=== PATIENT | female | born 1940 | race Caucasian/White ===

== ENCOUNTER 2021-04-20 19:19 | Inpatient (IN) | payer OTHER ==
[~2021-04-20] VITALS: Ht 162.6 cm; Wt 99.8 kg
[2021-04-20 20:34] LABS: CALCIUM, SERUM 9.2 mg/dL (8.5-10.1); CREATININE 1.1 mg/dL (0.6-1.3); POTASSIUM 3.6 mmol/L (3.5-5.1)
[2021-04-20 20:38] LABS: BASOPHILS % (AUTO) 0.5 % (0.0-2.0); EOSINOPHILS % (AUTO) 0.8 % (0.0-6.0); HEMATOCRIT 37 % (33-45); HEMOGLOBIN 12.4 g/dL (11.5-14.8); LYMPHOCYTES # (AUTO) 2.2 K/uL (0.8-4.8); LYMPHOCYTES % (AUTO) 25.7 % (20.0-44.0); MEAN CORPUSCULAR HGB CONC 34 g/dl (31.0-36.0); MEAN CORPUSCULAR VOLUME 91 fL (82-100); MONOCYTES # (AUTO) 0.6 K/uL (0.1-1.30); MONOCYTES % (AUTO) 7.2 % (2.0-12.0); NEUTROPHILS # (AUTO) 5.6 K/uL (1.8-8.9); NEUTROPHILS % (AUTO) 65.8 % (43.0-81.0); PLATELET COUNT (AUTO) 337 K/uL (150-450); RED BLOOD CELL COUNT(AUTO) 4.08 MIL/uL (4.0-5.2); WHITE BLOOD COUNT (AUTO) 8.4 K/uL (4.3-11.0)
[2021-04-20] MEDS ORDERED: ONDANSETRON HCL/PF 4 MG/2 ML VIAL ONE (20:43)
[2021-04-20] MEDS ORDERED: MORPHINE SULFATE INJ 4 MG/ML DISP.SYRIN ONE (20:44)
[2021-04-20] MEDS ORDERED: ONDANSETRON HCL/PF 4 MG/2 ML VIAL IV ONE (21:00)
[2021-04-20] MEDS ORDERED: MORPHINE SULFATE INJ 2 MG/ML DISP.SYRIN IV ONE (21:00)
[2021-04-20] MEDS ORDERED: ONDANSETRON HCL/PF 4 MG/2 ML VIAL IVP PRN (21:30)
[2021-04-20] MEDS ORDERED: MORPHINE SULFATE INJ 2 MG/ML DISP.SYRIN IV PRN (21:30)
[2021-04-20] MEDS ORDERED: ACETAMINOPHEN 325 MG TABLET PO PRN (21:30)
[2021-04-20] MEDS ORDERED: Z GUARD REMEDY 4 OZ OINT TP PRN (21:30)
[2021-04-20] MEDS ORDERED: MAGNESIUM HYDROXIDE 30 ML UDC PO PRN (21:30)
[2021-04-20] MEDS ORDERED: MAG HYDROX/AL HYDROX/SIMETH 30 ML UDC PO PRN (21:30)
[2021-04-20] MEDS ORDERED: HYDROMORPHONE 1 MG/1 ML DISP.SYRIN ONE (22:56)
[2021-04-20] MEDS ORDERED: ONDANSETRON HCL/PF - ER 4 MG/2 ML VIAL IV ONE (23:00)
[2021-04-20] MEDS ORDERED: HYDROMORPHONE 1 MG/1 ML DISP.SYRIN IV ONE (23:00)
[2021-04-21] MEDS ORDERED: MORPHINE SULFATE INJ 2 MG/ML DISP.SYRIN ONE (03:44)
[2021-04-21 04:30] VITALS: BP 147/75
[2021-04-21] MEDS: HYDROMORPHONE 1 MG/1 ML DISP.SYRIN IV PRN ×4 (05:51→18:51)
[2021-04-21] MEDS: IV NS 0.9% 1,000 ML IV PRN ×2 (07:33→19:06)
[2021-04-21] MEDS ORDERED: LOSA25TA27 PO (08:02)
[2021-04-21 08:04] LABS: BASOPHILS # (AUTO) 0.1 K/uL (0.0-0.2); BASOPHILS % (AUTO) 0.7 % (0.0-2.0); EOSINOPHILS % (AUTO) 1.5 % (0.0-6.0); HEMATOCRIT 37 % (33-45); HEMOGLOBIN 12.3 g/dL (11.5-14.8); LYMPHOCYTES # (AUTO) 1.1 K/uL (0.8-4.8); LYMPHOCYTES % (AUTO) 12.7 % (20.0-44.0); MEAN CORPUSCULAR HGB CONC 33 g/dl (31.0-36.0); MEAN CORPUSCULAR VOLUME 91 fL (82-100); MONOCYTES # (AUTO) 0.8 K/uL (0.1-1.30); NEUTROPHILS # (AUTO) 6.5 K/uL (1.8-8.9); NEUTROPHILS % (AUTO) 76.1 % (43.0-81.0); PLATELET COUNT (AUTO) 301 K/uL (150-450); RED BLOOD CELL COUNT(AUTO) 4.13 MIL/uL (4.0-5.2); WHITE BLOOD COUNT (AUTO) 8.6 K/uL (4.3-11.0)
[2021-04-21 08:31] LABS: BILIRUBIN,TOTAL 0.7 mg/dL (0.2-1.0); CALCIUM, SERUM 8.8 mg/dL (8.5-10.1); CREATININE 1.1 mg/dL (0.6-1.3); MAGNESIUM 2.1 mg/dL (1.8-2.4); PHOSPHORUS 4.1 mg/dL (2.5-4.9); POTASSIUM 3.6 mmol/L (3.5-5.1); TOTAL PROTEIN, SERUM 6.9 g/dL (6.4-8.2)
[2021-04-21] MEDS: PANTOPRAZOLE 40 MG VIAL IV SCH ×2 (08:34→08:38)
[2021-04-21 08:37] VITALS: BP 141/76
[2021-04-21] MEDS ORDERED: BIOT10004 PO (12:59)
[2021-04-21] MEDS ORDERED: CALC500T52 PO (12:59)
[2021-04-21] MEDS ORDERED: CHOL100043 PO (12:59)
[2021-04-21] MEDS ORDERED: TROS20TA3 PO (12:59)
[2021-04-21] MEDS ORDERED: MULT-24 PO (12:59)
[2021-04-21] MEDS ORDERED: ATOR10TA PO (12:59)
[2021-04-21] MEDS ORDERED: LORA-259 PO (12:59)
[2021-04-21 16:07] VITALS: BP 137/74
[2021-04-21 20:00] VITALS: BP 121/90
[2021-04-22] VITALS (10 sets, daily range): BP systolic 115–149; BP diastolic 56–83
[2021-04-22] MEDS: HYDROMORPHONE 1 MG/1 ML DISP.SYRIN IV PRN ×4 (02:58→21:59)
[2021-04-22] MEDS: LOSARTAN POTASSIUM 50 MG TABLET PO SCH (08:13)
[2021-04-22] MEDS: PANTOPRAZOLE 40 MG VIAL IV SCH (08:13)
[2021-04-22] MEDS ORDERED: POLYMYXIN B SULFATE 500,000 UNITS ONE ×2 (09:00→11:27)
[2021-04-22] MEDS ORDERED: BUPIVACAINE 0.25% 75 MG/30 ML VIAL ONE (09:01)
[2021-04-22] MEDS ORDERED: ANESTHESIA TRAY IN PYXIS 1 EA TRAY MC ONE (09:01)
[2021-04-22] MEDS ORDERED: VANCOMYCIN 1 GM VIAL ONE (09:01)
[2021-04-22] MEDS ORDERED: FENTANYL PF 100MCG/2ML AMPUL ONE ×3 (09:47→12:51)
[2021-04-22] MEDS ORDERED: PROPOFOL 20 ML IV ONE (09:47)
[2021-04-22] MEDS: DOCUSATE SODIUM 100 MG CAPSULE PO SCH ×2 (13:00→16:52)
[2021-04-22 13:36] LABS: HEMOGLOBIN 11.9 g/dL (11.5-14.8)
[2021-04-22] MEDS: ANCEF 1 GM/50 ML D5W IV SCH ×2 (17:21)
[2021-04-22] MEDS: ENOXAPARIN SODIUM 40 MG/0.4 ML DISP.SYRIN SQ SCH (22:03)
[2021-04-23] MEDS: IV NS 0.9% 1,000 ML IV PRN (00:48)
[2021-04-23] MEDS: ANCEF 1 GM/50 ML D5W IV SCH ×2 (01:02)
[2021-04-23] MEDS: HYDROCODONE/APAP 10/325MG TABLET PO PRN ×2 (01:22→20:43)
[2021-04-23 03:44] VITALS: BP 120/87
[2021-04-23 07:54] LABS: HEMOGLOBIN 10.5 g/dL (11.5-14.8)
[2021-04-23] MEDS: DOCUSATE SODIUM 100 MG CAPSULE PO SCH ×3 (09:58→16:07)
[2021-04-23] MEDS: LOSARTAN POTASSIUM 50 MG TABLET PO SCH (09:58)
[2021-04-23] MEDS: PANTOPRAZOLE 40 MG TABLET.DR PO SCH (10:02)
[2021-04-23] MEDS: HYDROMORPHONE 1 MG/1 ML DISP.SYRIN IV PRN (10:03)
[2021-04-23] MEDS ORDERED: LORAZEPAM 1 MG TABLET PO PRN (13:30)
[2021-04-23 16:14] VITALS: BP 129/76
[2021-04-23 20:00] VITALS: BP 149/65
[2021-04-23] MEDS: ENOXAPARIN SODIUM 40 MG/0.4 ML DISP.SYRIN SQ SCH (22:00)
[2021-04-24] MEDS: HYDROMORPHONE 1 MG/1 ML DISP.SYRIN IV PRN (07:01)
[2021-04-24 07:10] LABS: BASOPHILS % (AUTO) 0.7 % (0.0-2.0); EOSINOPHILS % (AUTO) 4.1 % (0.0-6.0); HEMATOCRIT 29 % (33-45); HEMOGLOBIN 9.9 g/dL (11.5-14.8); LYMPHOCYTES % (AUTO) 15.3 % (20.0-44.0); MEAN CORPUSCULAR HGB CONC 34 g/dl (31.0-36.0); MEAN CORPUSCULAR VOLUME 91 fL (82-100); MONOCYTES # (AUTO) 0.7 K/uL (0.1-1.30); NEUTROPHILS # (AUTO) 4.5 K/uL (1.8-8.9); NEUTROPHILS % (AUTO) 68.9 % (43.0-81.0); PLATELET COUNT (AUTO) 283 K/uL (150-450); RED BLOOD CELL COUNT(AUTO) 3.22 MIL/uL (4.0-5.2); WHITE BLOOD COUNT (AUTO) 6.5 K/uL (4.3-11.0)
[2021-04-24 07:51] LABS: CALCIUM, SERUM 8.6 mg/dL (8.5-10.1); CREATININE 0.8 mg/dL (0.6-1.3); MAGNESIUM 2.3 mg/dL (1.8-2.4); PHOSPHORUS 2.4 mg/dL (2.5-4.9)
[2021-04-24 08:16] VITALS: BP 151/57
[2021-04-24] MEDS: CHOLECALCIFEROL 1,000 UNIT TABLET (VIT D3) PO SCH (09:13)
[2021-04-24] MEDS: DOCUSATE SODIUM 100 MG CAPSULE PO SCH ×3 (09:13→16:21)
[2021-04-24] MEDS: LOSARTAN POTASSIUM 50 MG TABLET PO SCH (09:13)
[2021-04-24] MEDS: MULTIVITAMINS,THERAGRAN 1 UDTAB TABLET PO SCH (09:13)
[2021-04-24] MEDS: PANTOPRAZOLE 40 MG TABLET.DR PO SCH (09:15)
[2021-04-24] MEDS ORDERED: K PHOS NEUTRAL 250 MG TABLET PO ONE (11:30)
[2021-04-24] MEDS: HYDROCODONE/APAP 10/325MG TABLET PO PRN ×2 (12:40→20:15)
[2021-04-24 16:39] VITALS: BP 137/58
[2021-04-24 20:00] VITALS: BP 132/60
[2021-04-24] MEDS: ENOXAPARIN SODIUM 40 MG/0.4 ML DISP.SYRIN SQ SCH (21:36)
[2021-04-25] VITALS: BP 147/87
[2021-04-25 08:00] VITALS: BP 151/61
[2021-04-25] MEDS: ENOXAPARIN SODIUM 40 MG/0.4 ML DISP.SYRIN SQ SCH ×2 (08:50→21:41)
[2021-04-25] MEDS: LOSARTAN POTASSIUM 50 MG TABLET PO SCH (08:51)
[2021-04-25] MEDS: CHOLECALCIFEROL 1,000 UNIT TABLET (VIT D3) PO SCH (08:51)
[2021-04-25] MEDS: HYDROCODONE/APAP 10/325MG TABLET PO PRN ×2 (08:51→19:04)
[2021-04-25] MEDS: DOCUSATE SODIUM 100 MG CAPSULE PO SCH ×3 (08:51→16:03)
[2021-04-25] MEDS: MULTIVITAMINS,THERAGRAN 1 UDTAB TABLET PO SCH (08:51)
[2021-04-25] MEDS: PANTOPRAZOLE 40 MG TABLET.DR PO SCH (08:51)
[2021-04-25 11:08] LABS: IRON, SERUM 20 ug/dl (50-175); TOTAL IRON BINDING CAPACITY 219 ug/dl (250-450)
[2021-04-25] MEDS: ASCORBIC ACID 500 MG TABLET PO SCH (13:29)
[2021-04-25 15:48] LABS: FERRITIN 141 ng/mL (8-388)
[2021-04-25 16:00] VITALS: BP 156/76
[2021-04-25] MEDS ORDERED: FERROUS SULFATE (325 MG) 325 MG/TAB TABLET PO SCH (17:00)
[2021-04-25 20:00] VITALS: BP 130/76
[2021-04-25 20:53] VITALS: BP 130/70
[2021-04-26] MEDS: HYDROCODONE/APAP 10/325MG TABLET PO PRN ×3 (06:53→19:38)
[2021-04-26 07:21] LABS: BASOPHILS % (AUTO) 0.8 % (0.0-2.0); EOSINOPHILS % (AUTO) 4.5 % (0.0-6.0); HEMATOCRIT 29 % (33-45); HEMOGLOBIN 9.8 g/dL (11.5-14.8); LYMPHOCYTES # (AUTO) 1.2 K/uL (0.8-4.8); LYMPHOCYTES % (AUTO) 20.4 % (20.0-44.0); MEAN CORPUSCULAR HGB CONC 33 g/dl (31.0-36.0); MEAN CORPUSCULAR VOLUME 90 fL (82-100); MONOCYTES # (AUTO) 0.7 K/uL (0.1-1.30); MONOCYTES % (AUTO) 12.2 % (2.0-12.0); NEUTROPHILS # (AUTO) 3.8 K/uL (1.8-8.9); NEUTROPHILS % (AUTO) 62.1 % (43.0-81.0); PLATELET COUNT (AUTO) 308 K/uL (150-450); RED BLOOD CELL COUNT(AUTO) 3.24 MIL/uL (4.0-5.2)
[2021-04-26 08:00] VITALS: BP 151/72
[2021-04-26 08:22] LABS: CALCIUM, SERUM 9.5 mg/dL (8.5-10.1); CREATININE 0.7 mg/dL (0.6-1.3); MAGNESIUM 2.2 mg/dL (1.8-2.4); POTASSIUM 3.7 mmol/L (3.5-5.1)
[2021-04-26] MEDS: ASCORBIC ACID 500 MG TABLET PO SCH (08:39)
[2021-04-26] MEDS: CHOLECALCIFEROL 1,000 UNIT TABLET (VIT D3) PO SCH (08:39)
[2021-04-26] MEDS: DOCUSATE SODIUM 100 MG CAPSULE PO SCH ×3 (08:39→16:14)
[2021-04-26] MEDS: LOSARTAN POTASSIUM 50 MG TABLET PO SCH (08:39)
[2021-04-26] MEDS: PANTOPRAZOLE 40 MG TABLET.DR PO SCH (08:39)
[2021-04-26] MEDS: MULTIVITAMINS,THERAGRAN 1 UDTAB TABLET PO SCH (08:40)
[2021-04-26] MEDS: SOD FERRIC GLUC 125 MG in IV NS 0.9% 100 ML IV SCH (14:28)
[2021-04-26 16:00] VITALS: BP 144/69
[2021-04-26 20:00] VITALS: BP 154/74
[2021-04-26] MEDS: ENOXAPARIN SODIUM 40 MG/0.4 ML DISP.SYRIN SQ SCH (21:43)
[2021-04-27] VITALS: BP 126/69
[2021-04-27 04:00] VITALS: BP 134/71
[2021-04-27 08:00] VITALS: BP 160/80
[2021-04-27] MEDS: DOCUSATE SODIUM 100 MG CAPSULE PO SCH ×3 (08:18→17:12)
[2021-04-27] MEDS: CHOLECALCIFEROL 1,000 UNIT TABLET (VIT D3) PO SCH (08:18)
[2021-04-27] MEDS: ASCORBIC ACID 500 MG TABLET PO SCH (08:18)
[2021-04-27] MEDS: MULTIVITAMINS,THERAGRAN 1 UDTAB TABLET PO SCH (08:18)
[2021-04-27] MEDS: PANTOPRAZOLE 40 MG TABLET.DR PO SCH (08:18)
[2021-04-27] MEDS: LOSARTAN POTASSIUM 50 MG TABLET PO SCH (08:19)
[2021-04-27] MEDS: HYDROCODONE/APAP 10/325MG TABLET PO PRN ×4 (08:22→21:57)
[2021-04-27] MEDS: SOD FERRIC GLUC 125 MG in IV NS 0.9% 100 ML IV SCH (15:15)
[2021-04-27 16:00] VITALS: BP 148/83
[2021-04-27 20:00] VITALS: BP 143/61
[2021-04-27] MEDS: ENOXAPARIN SODIUM 40 MG/0.4 ML DISP.SYRIN SQ SCH (21:50)
[2021-04-28 08:00] VITALS: BP 131/68
[2021-04-28 08:02] VITALS: BP 134/78
[2021-04-28] MEDS: PANTOPRAZOLE 40 MG TABLET.DR PO SCH (08:02)
[2021-04-28] MEDS: DOCUSATE SODIUM 100 MG CAPSULE PO SCH ×2 (08:02→12:22)
[2021-04-28] MEDS: ASCORBIC ACID 500 MG TABLET PO SCH (08:02)
[2021-04-28] MEDS: MULTIVITAMINS,THERAGRAN 1 UDTAB TABLET PO SCH (08:02)
[2021-04-28] MEDS: LOSARTAN POTASSIUM 50 MG TABLET PO SCH (08:02)
[2021-04-28] MEDS: CHOLECALCIFEROL 1,000 UNIT TABLET (VIT D3) PO SCH (08:02)
[2021-04-28] MEDS: HYDROCODONE/APAP 10/325MG TABLET PO PRN ×2 (09:11→13:18)
[2021-04-28 10:02] LABS: BASOPHILS # (AUTO) 0.1 K/uL (0.0-0.2); BASOPHILS % (AUTO) 0.7 % (0.0-2.0); EOSINOPHILS % (AUTO) 3.8 % (0.0-6.0); HEMATOCRIT 31 % (33-45); HEMOGLOBIN 10.4 g/dL (11.5-14.8); LYMPHOCYTES # (AUTO) 1.1 K/uL (0.8-4.8); MEAN CORPUSCULAR HGB CONC 33 g/dl (31.0-36.0); MEAN CORPUSCULAR VOLUME 91 fL (82-100); MONOCYTES # (AUTO) 0.6 K/uL (0.1-1.30); MONOCYTES % (AUTO) 8.3 % (2.0-12.0); NEUTROPHILS # (AUTO) 5.3 K/uL (1.8-8.9); NEUTROPHILS % (AUTO) 72.2 % (43.0-81.0); PLATELET COUNT (AUTO) 370 K/uL (150-450); RED BLOOD CELL COUNT(AUTO) 3.46 MIL/uL (4.0-5.2); WHITE BLOOD COUNT (AUTO) 7.4 K/uL (4.3-11.0)
== END 2021-04-28 14:30 | DRG 482 ==
LOC: ER 19:23 → TRANSITION 04-21 01:51 → MED 04-21 03:36
PROVIDERS: ADMIT Hospitalist; ATTEND Internal Medicine
PROC: 0QS706Z Reposition Left Upper Femur with Intramedullary Internal Fixation Device, Open Approach (ICD-10-PCS; principal; 2021-04-22)
DX: S72.142A Displaced intertrochanteric fracture of left femur, initial encounter for closed fracture (principal); W01.0XXA Fall on same level from slipping, tripping and stumbling without subsequent striking against object, initial encounter; I10 Essential (primary) hypertension; R32 Unspecified urinary incontinence; E78.5 Hyperlipidemia, unspecified; Z20.822 Contact with and (suspected) exposure to COVID-19; Y92.481 Parking lot as the place of occurrence of the external cause; Z85.3 Personal history of malignant neoplasm of breast; Z96.651 Presence of right artificial knee joint; Z90.10 Acquired absence of unspecified breast and nipple
CPT/HCPCS: 36415; 71045-TC; 73502; 73552; 73564-TC; 80048-TC; 80053-TC; 82728-TC; 83540-TC; 83735-TC; 84100-TC; 85025-TC; 85027-TC; 86850-TC; 93307-TC; 97110-TC; 97112-TC; 97116-TC; 97530-TC; A6209; C1713; C9113; C9803; G0378; J0690; J1100; J1170; J1650; J2270; J2405; J2704; J2916; J3010; J3370; J3490; J7030; J7060